=== PATIENT | female | born 1965 | race Caucasian/White ===

== ENCOUNTER 2017-04-09 09:49 | Emergency (ER) | payer BC ==
--- NOTE | 2017-04-09 10:27 | ED ---
Wound/Laceration HPI - General Chief Complaint: Wound/Laceration Stated Complaint: Fall Time Seen by Provider: 04/09/17 10:22 Source: patient, EMS, RN notes reviewed Mode of arrival: EMS Limitations: no limitations - History of Present Illness Initial Comments: 52-year-old female presents emergency Department chief complaint trip and fall, head injury. Patient states she lost her balance and fell forward. Patient states that she hit her head on the ground. Patient states that she didn't lose consciousness but she does complain of a headache. Her tetanus is up-to- date in October. Patient states that there is a large amount of bleeding but the bleeding has stopped. Denies any blurred vision, nausea, vomiting, neck pain, back pain or any upper or lower extremity injury. - Related Data Home Medications Medication Instructions Recorded Confirmed Atenolol [Tenormin] 11/07/15 11/07/15 Hydrochlorothiazide [Hydrodiuril] 11/07/15 11/07/15 PHENobarbital [Luminal] 11/07/15 11/07/15 Phenytoin Sodium Extended 11/07/15 11/07/15 [Dilantin] levETIRAcetam [Keppra] 1 tab PO BID 11/07/15 11/07/15 Allergies Allergy/AdvReac Type Severity Reaction Status Date / Time prochlorperazine Allergy Mild Unknown Verified 11/07/15 23:49 [From Compazine] prochlorperazine edisylate Allergy Mild Unknown Verified 11/07/15 23:49 [From Compazine] prochlorperazine maleate Allergy Mild Unknown Verified 11/07/15 23:49 [From Compazine] Review of Systems ROS Statement: Those systems with pertinent positive or pertinent negative responses have been documented in the HPI. ROS Other: All systems not noted in ROS Statement are negative. Past Medical History Past Medical History: Hypertension, Seizure Disorder History of Any Multi-Drug Resistant Organisms: None Reported Past Surgical History: No Surgical Hx Reported Past Psychological History: No Psychological Hx Reported Smoking Status: Never smoker Past Alcohol Use History: None Reported Past Drug Use History: None Reported General Exam Limitations: no limitations General appearance: alert, in no apparent distress Head exam: Present: atraumatic, normocephalic. Absent: normal inspection (3 cm laceration noted to the left side of forehead) Eye exam: Present: normal appearance, PERRL, EOMI. Absent: scleral icterus, conjunctival injection, periorbital swelling ENT exam: Present: normal exam, normal oropharynx, mucous membranes moist, TM's normal bilaterally, normal external ear exam Neck exam: Present: normal inspection, full ROM. Absent: tenderness, meningismus, lymphadenopathy Respiratory exam: Present: normal lung sounds bilaterally. Absent: respiratory distress, wheezes, rales, rhonchi, stridor Cardiovascular Exam: Present: regular rate, normal rhythm, normal heart sounds. Absent: systolic murmur, diastolic murmur, rubs, gallop, clicks Extremities exam: Present: normal inspection, full ROM, normal capillary refill. Absent: tenderness, pedal edema, joint swelling, calf tenderness Back exam: Present: full ROM. Absent: tenderness Neurological exam: Present: alert, oriented X3, CN II-XII intact, reflexes normal. Absent: motor sensory deficit Skin exam: Present: warm, dry, intact, normal color. Absent: rash Course Vital Signs 04/09/17 09:50 Temperature 98.1 F Pulse Rate 69 Respiratory 18 Rate Blood Pressure 113/79 O2 Sat by Pulse 99 Oximetry Procedures - Laceration Laceration #1 Time Out Performed: Yes Indication: laceration Site: face Size (cm): 3 Description: linear Depth: simple, single layer Anesthetic Used: lidocaine 1%, without epi Anesthesia Technique: local infiltration Amount (mls): 4 Pre-repair: wound explored, irrigated extensively, deep structures intact Type of Sutures: nylon Size of Sutures: 6-0 Number of Sutures: 5 Technique: simple, interrupted Patient Tolerated Procedure: well, no complications Medical Decision Making - Medical Decision Making 52-year-old female presented emergency from for fall, head injury. There is no loss conscious. Patient had 3 cm laceration closed with sutures. CT does not reveal any acute abnormality are old findings noted. Patient has no neurological deficits. Patient be discharged tetanus is up-to-date. Disposition Clinical Impression: Head injury, Facial laceration Disposition: HOME SELF-CARE Condition: Stable Instructions: Care For Your Stitches (ED), Laceration (ED), Head Injury (ED) Additional Instructions: Sutures removed in 7 days.Please return to the Emergency Department if symptoms worsen or any other concerns. Referrals: Yuri Hill MD [Primary Care Provider] - 1-2 days Time of Disposition: :03
--- NOTE | 2017-04-09 10:50 | CT ---
EXAMINATION TYPE: CT brain wo con DATE OF EXAM: 04/09/2017 COMPARISON: Previous study dated 04/03/1710. HISTORY: Fall, open wound above Lt eye CT DLP: 1141 mGycm Automated exposure control for dose reduction was used. FINDINGS: Central structures are midline. There is no evidence of hydrocephalus. There are 2 focal lucencies in the external capsule on the left. These may relate to previous insults. There is no mass effect, mid line shift or intracranial blood. Visualized portions of the paranasal sinuses and mastoids are clear. No depressed skull fracture is s een. There is mild soft tissue swelling about the left eye. The orbital margins are intact. IMPRESSION: 1. 2 FOCAL LUCENCIES WITHIN THE EXTERNAL CAPSULE ON THE LEFT MAY RELATE TO PREVIOUS VASCULAR INSULT. 2. MILD FOCAL SWELLING OVER THE LEFT ORBIT.
[2017-04-09 11:23] VITALS: BP 118/76; PULSE 65; RESP 15; TEMP 97.3
== END 2017-04-09 11:45 | disposition home or self-care (01) ==
LOC: EC 09:49
DX: S01.81XA Laceration without foreign body of other part of head, initial encounter (principal); I10 Essential (primary) hypertension; G40.909 Epilepsy, unspecified, not intractable, without status epilepticus; Z79.899 Other long term (current) drug therapy; Z88.8 Allergy status to other drugs, medicaments and biological substances; W01.198A Fall on same level from slipping, tripping and stumbling with subsequent striking against other object, initial encounter
CPT/HCPCS: 12013; 70450; 99283

== ENCOUNTER → 2017-06-12 | Outpatient (CLI) | payer BC | END | disposition home or self-care (01) | LOC: LABWHC1 07:41 | PROVIDERS: ATTEND Psychiatry & Neurology Neurology | DX: G40.309 Generalized idiopathic epilepsy and epileptic syndromes, not intractable, without status epilepticus (principal) | CPT/HCPCS: 36415; 80177; 80184; 80185 ==

== ENCOUNTER → 2017-09-24 | Outpatient (CLI) | payer BC | END | disposition home or self-care (01) | LOC: LABWHC1 07:38 | PROVIDERS: ATTEND Psychiatry & Neurology Neurology | DX: G40.309 Generalized idiopathic epilepsy and epileptic syndromes, not intractable, without status epilepticus (principal) | CPT/HCPCS: 36415; 80185 ==

== ENCOUNTER → 2018-06-12 | Outpatient (CLI) | payer BC | LOC: LABWHC1 07:40 | PROVIDERS: ATTEND Psychiatry & Neurology Neurology | DX: G40.919 Epilepsy, unspecified, intractable, without status epilepticus (principal) | CPT/HCPCS: 36415; 80177; 80184; 80185 ==

== ENCOUNTER → 2018-12-01 | Outpatient (CLI) | payer BC ==
--- NOTE | 2018-12-02 13:29 | MM ---
Reason for exam: screening (asymptomatic). Last mammogram was performed 3 years ago. History: Patient is postmenopausal and is nulliparous. Physical Findings: A clinical breast exam by your physician is recommended on an annual basis and results should be correlated with mammographic findings. MG Screening Mammo w CAD Bilateral CC and MLO view(s) were taken. Prior study comparison: December 05, 2015, bilateral MG screening mammo w CAD. November 29, 2014, bilateral MG screening mammo w CAD. The breast tissue is heterogeneously dense. This may lower the sensitivity of mammography. There is no discrete abnormality. No significant changes when compared with prior studies. ASSESSMENT: Negative, BI-RAD 1 RECOMMENDATION: Routine screening mammogram of both breasts in 1 year.
== END | disposition home or self-care (01) ==
LOC: RADMAMWWP 12:01
PROVIDERS: ATTEND Family Medicine
DX: Z12.31 Encounter for screening mammogram for malignant neoplasm of breast (principal)
CPT/HCPCS: 77067